=== PATIENT | female | born 1970 | race Caucasian/White ===

== ENCOUNTER 2020-04-14 02:10 | Outpatient (CLI) | payer OTHER, SELFPAY ==
[2020-04-14 18:09] LABS: SARS-CoV-2 RNA PCR Negative
== END 2020-04-14 02:11 | disposition home or self-care (01) ==
LOC: ANHCOVIDDT 02:10
PROVIDERS: Visit Provider Internal Medicine Gastroenterology
DX: Z01.818 Encounter for other preprocedural examination (principal); Z11.59 Encounter for screening for other viral diseases
CPT/HCPCS: 87635; C9803; U0003

== ENCOUNTER 2020-04-17 02:44 | Day surgery (SDC) | payer OTHER, SELFPAY ==
[2020-04-12 13:08] VITALS: BMI 21.1
[2020-04-17 12:18] VITALS: BP 120/65; RESP 16; TEMP 36.5; O2SAT 97; BMI 20.2
[2020-04-17] MEDS: LACTATED RINGERS 1,000 ML 150 ML IV CONT (12:32)
--- NOTE | 2020-04-17 13:37 | WPDANESEPPF ---
Anes - Initial Pre Proc Eval Procedure: Operation Date: 04/17/20 13:00 Proposed Procedures p Esophagogastroduodenoscopy&Screen Colon - Dallin Avendano MD Date/Time: 04/17/20 13:37 Surgeon: Dallin Avendano MD Pre Op Diagnosis: Epigastric Pain, GERD, Bloating Patient Data Age: 50 Gender: F Height: 5 ft 9 in Weight: 62.1 kg Last Vital Signs Temp 36.5 C 04/17/20 12:18 Resp 16 04/17/20 12:18 BP 120/65 04/17/20 12:18 Pulse Ox 97 04/17/20 12:18 Allergies Allergy/AdvReac Type Severity Reaction Status Date / Time ranitidine Allergy Severe Rash Verified 04/17/20 12:15 Home Medications Medication Instructions Recorded Confirmed Type clonidine HCl 0.1 mg tablet 0.1 mg PO DAILY 03/23/20 04/12/20 History ergocalciferol (vitamin D2) 1,250 1,250 mcg PO WEEKLY 03/23/20 04/12/20 History mcg (50,000 unit) capsule escitalopram oxalate 10 mg tablet 10 mg PO DAILY 03/23/20 04/12/20 History lansoprazole [Prevacid] 30 mg PO DAILY 04/12/20 04/12/20 History Patient hx anesthesia problems: none Family hx anesthesia problems: none PMFSH Past Medical History Medical History Bacterial infection due to H. pylori Bloating Dyspepsia Essential hypertension Family history of colon cancer in mother GERD (gastroesophageal reflux disease) Surgical History Surgical History H/O foot surgery Family History Family History Sibling Bone cancer Father Esophageal cancer Mother Thyroid disorder Hypertension Colon cancer Sibling Lung cancer Cancer of kidney Bone cancer Social History Social History Smoking status: Current every day smoker Anes - Eval Final PreProcedure Day of Procedure 04/17/20 13:37 Patient weight: normal Heart: regular rate and rhythm Lungs: clear to auscultation Airway: Mallampati scale class II Neurological: alert and oriented Last oral intake: >/= 8 hours ASA classification: III Emergent: no Anesthetic plan: proceed Anesthesia type and monitoring: general GIVS and standard monitoring Informed Consent: The patient's anesthetic plan and its attendant risks and benefits were discussed with the patient/family/POA. Questions were solicited and answers provided to the satisfaction of the patient/family/POA.
--- NOTE | 2020-04-17 13:53 | WPDHPUPDATE1 ---
History and Physical Update Update Date/Time: 04/17/20 13:53 History and Physical has been reviewed, including an updated exam of the patient. There are NO changes in the patient's condition. Risks, benefits, and alternatives have been discussed and questions answered. Patient agrees to proceed with procedure.
[2020-04-17] MEDS: BENZOCAINE (*SP) 60 ML SPRAY CAN (HURRICAINE) 1 SPRAY MUCOUS MEM (14:00)
--- NOTE | 2020-04-17 14:05 | SUR.PREOP ---
Notified anesthesia Dr Workman regarding urine specific gravity. No new orders recieved.
[2020-04-17 14:30] VITALS: BP 106/75; PULSE 61; RESP 21; O2SAT 100
[2020-04-17 14:40] VITALS: BP 135/83; PULSE 47; RESP 21; O2SAT 100
[2020-04-17 14:50] VITALS: BP 139/84; PULSE 47; RESP 21; O2SAT 100
== END 2020-04-17 15:07 | disposition home or self-care (01) ==
PROVIDERS: Visit Provider Internal Medicine Gastroenterology
PROC: 0DJ08ZZ Inspection of Upper Intestinal Tract, Via Natural or Artificial Opening Endoscopic (ICD-10-PCS; CPT 43235; principal; 2020-04-17 13:00)
DX: Z12.11 Encounter for screening for malignant neoplasm of colon (principal); K63.3 Ulcer of intestine; K64.8 Other hemorrhoids; Z80.0 Family history of malignant neoplasm of digestive organs; Z15.09 Genetic susceptibility to other malignant neoplasm; K29.50 Unspecified chronic gastritis without bleeding; K57.10 Diverticulosis of small intestine without perforation or abscess without bleeding; K21.9 Gastro-esophageal reflux disease without esophagitis; I10 Essential (primary) hypertension
CPT/HCPCS: 45380; 43239; 87081; 88305; J2704; J7120